=== PATIENT | female | born 1990 | race American Indian/Alaskan Native ===

== ENCOUNTER 2016-10-02 20:49 | Emergency (ER) | payer SELFPAY ==
[2016-10-02 21:55] LABS: Basophils % (Auto) 0.5 % (0.0-1.8); Eosinophils % (Auto) 4.8 % (0.0-4.3); Hemoglobin 13.2 gm/dl (10.1-14.3); Mean Corpuscular HGB Conc 33 % (30-34); Mean Corpuscular Hemoglobin 29 pg (28-32); Mean Corpuscular Volume 88 fl (79-97); Platelet Count 269 K/mm3 (140-440); Red Blood Count 4.54 M/mm3 (3.65-5.03); Red Cell Distribution Width 13.1 % (13.2-15.2); White Blood Count 4.4 K/mm3 (4.5-11.0)
[2016-10-02 22:01] LABS: Alanine Aminotransferase 54 units/L (7-56); Albumin 4.2 g/dL (3.9-5); Albumin/Globulin Ratio 1.3 %; Alkaline Phosphatase 98 units/L (35-129); Anion Gap 18 mmol/L; BUN/Creatinine Ratio 14.28; Bilirubin,Total < 0.20 mg/dL (0.1-1.2); Blood Urea Nitrogen 10 mg/dL (7-17); Calcium 8.9 mg/dL (8.4-10.2); Carbon Dioxide 23 mmol/L (22-30); Chloride 100.4 mmol/L (98-107); Glucose 80 mg/dL (65-100); Lipase 29 units/L (13-60); Potassium 3.5 mmol/L (3.6-5.0); Sodium 138 mmol/L (137-145); Total Protein 7.4 g/dL (6.3-8.2)
[2016-10-02 22:05] LABS: INR 0.94 (0.87-1.13)
[2016-10-02 22:06] LABS: Partial Thromboplastin Time 26.8 Sec. (24.2-36.6)
[2016-10-02 23:11] LABS: Bacteria,Urine 1+ /HPF (Negative); Bilirubin,Urine NEG (Negative); Blood,Urine NEG (Negative); Ketones,Urine NEG (Negative); Leukocyte Esterase,Urine NEG (Negative); Mucus,Urine FEW /HPF; Nitrite,Urine NEG (Negative); Protein,Urine <15 mg/dL mg/dL (Negative); Urobilinogen,Urine < 2.0 mg/dL (<2.0)
[2016-10-02] MEDS ORDERED: NACL 0.9% 1000 ML 1,000 ML IV ONE (23:53)
[2016-10-02] MEDS ORDERED: MORPHINE IV ONE (23:53)
[2016-10-02] MEDS ORDERED: ZOFRAN IV ONE (23:53)
[2016-10-03] MEDS ORDERED: BENADRYL IV ONE ×2 (00:55→01:49)
[2016-10-03 01:26] VITALS: BP 147/88
[2016-10-03] MEDS ORDERED: MORPHINE IV ONE (01:42)
--- NOTE | 2016-10-03 01:42 | Emergency Department Report ---
ED Female HPI - General Chief complaint: Vaginal Bleeding Stated complaint: VAGINAL BLEEDING/FEVER/ON BLOOD THINNER Time Seen by Provider: 10/02/16 23:42 Source: patient Mode of arrival: Ambulatory Limitations: No Limitations - History of Present Illness Initial comments: 26-year-old female with a past medical history of endometriosis and DVT diagnosed 4-5 months ago currently on Xarelto presents to the hospital with complaints of heavy vaginal bleeding that started at 4 AM. Positive subjective fever started this morning as well. Patient states she woke up in a sweat but was unable take her temperature.. Episodes of nausea and vomiting reported. Patient states she's used 20 pads in 16 hours and use an additional pad while waiting to be seen here. She has not had any menstrual cycle or vaginal bleeding since the delivery of her child one year ago. Patient has been on megestrol control to control her heavy and painful periods associated with endometriosis. Patient denies a history of uterine fibroids. She is presents concern of hemorrhage given that she is on Xarelto. Positive dysuria reported. HADOOP ADMINISTRATOR doctor: Not affiliated - Related Data Previous Rx's Medication Instructions Recorded Last Taken Type Ondansetron [Zofran Odt] 4 mg PO Q8HR PRN #20 tab.rapdis 10/03/16 Unknown Rx oxyCODONE /ACETAMINOPHEN [Percocet 1 tab PO Q6HR PRN #20 tablet 10/03/16 Unknown Rx 5/325] Allergies Allergy/AdvReac Type Severity Reaction Status Date / Time ibuprofen Allergy Hives Verified 10/02/16 21:19 ketorolac tromethamine Allergy Hives Verified 10/02/16 21:19 [From Toradol] Penicillins Allergy Hives Verified 10/02/16 21:19 ED Review of Systems ROS: Stated complaint: VAGINAL BLEEDING/FEVER/ON BLOOD THINNER Other details as noted in HPI Comment: All other systems reviewed and negative Other: Constitutional: Fever reported (subjective) Eyes: No eye pain visual changes ENT: No ear pain or throat pain Neck: Denies pain Respiratory: Denies cough wheezing shortness of breath Cardiovascular: Denies chest pain, palpitations, syncope GI: As per HPI : As per HPI Musculoskeletal: Denies back pain Skin: Denies rash, lesions, erythema Neurologic: Denies headache, numbness, weakness Psychiatric: Denies suicidal ideation, hallucinations ED Past Medical Hx - Past Medical History Previous Medical History?: Yes Additional medical history: Blood Clot Left leg. Endemetriosis - Surgical History Past Surgical History?: Yes Hx Appendectomy: Yes Additional Surgical History: Left Ankle x 4. C-Sec x 2 - Social History Smoking Status: Never Smoker Substance Use Type: None - Medications Home Medications: Home Medications Medication Instructions Recorded Confirmed Last Taken Type Ondansetron [Zofran Odt] 4 mg PO Q8HR PRN #20 tab.rapdis 10/03/16 Unknown Rx oxyCODONE /ACETAMINOPHEN [Percocet 1 tab PO Q6HR PRN #20 tablet 10/03/16 Unknown Rx 5/325] ED Physical Exam - General Limitations: No Limitations - Other Other exam information: General: No limitations, patient is alert in no acute distress Head exam: Atraumatic, normocephalic Eyes exam: Normal appearance, pupils equal reactive to light, extraocular movements intact ENT: Moist mucous membrane, normal oropharynx Neck exam: Normal inspection, full range of motion, no meningismus nontender Respiratory exam: Clear to auscultation bilateral, no wheezes, rales, crackles Cardiovascular: Normal rate and rhythm Abdomen: Soft, nondistended, suprapubic tenderness to palpation, with normal bowel sounds, no rebound, or guarding : No vaginal bleeding or blood in the vault. White vaginal discharge with positive uterine tenderness Extremity: Full range of motion normal inspection no deformity Back: Normal Inspection, full range of motion, no tenderness Neurologic: Alert, oriented x3, cranial nerves intact, no motor or sensory deficit Psychiatric: normal affect, normal mood Skin: Warm, dry, intact ED Course Vital Signs 10/02/16 10/03/16 21:15 01:24 Temperature 98.3 F 98 F Pulse Rate 96 H 88 Respiratory 18 18 Rate Blood Pressure 142/95 147/88 [Right] O2 Sat by Pulse 100 100 Oximetry - Reevaluation(s) Reevaluation #1: 10/03/16 01:44 Patient treated with morphine, Zofran, and normal saline subsequently developed itching which improved with Benadryl. Patient requesting additional morphine/ pain medication after vaginal exam ED Medical Decision Making - Lab Data Result diagrams: 10/02/16 21:26 10/02/16 21:26 Lab Results 10/02/16 10/02/16 10/02/16 Range/Units 21:26 21:26 21:26 WBC 4.4 L (4.5-11.0) K/mm3 RBC 4.54 (3.65-5.03) M/mm3 Hgb 13.2 (10.1-14.3) gm/dl Hct 40.0 (30.3-42.9) % MCV 88 (79-97) fl MCH 29 (28-32) pg MCHC 33 (30-34) % RDW 13.1 L (13.2-15.2) % Plt Count 269 (140-440) K/mm3 Lymph % (Auto) 35.4 H (13.4-35.0) % [place] % (Auto) 9.4 H (0.0-7.3) % Eos % (Auto) 4.8 H (0.0-4.3) % Baso % (Auto) 0.5 (0.0-1.8) % Lymph # 1.5 (1.2-5.4) K/mm3 [place] # 0.4 (0.0-0.8) K/mm3 Eos # 0.2 (0.0-0.4) K/mm3 Baso # 0.0 (0.0-0.1) K/mm3 Seg Neutrophils % 49.9 (40.0-70.0) % Seg Neutrophils # 2.2 (1.8-7.7) K/mm3 PT 12.5 (12.2-14.9) Sec. INR 0.94 (0.87-1.13) APTT 26.8 (24.2-36.6) Sec. Sodium 138 (137-145) mmol/L Potassium 3.5 L (3.6-5.0) mmol/L Chloride 100.4 (98-107) mmol/L Carbon Dioxide 23 (22-30) mmol/L Anion Gap 18 mmol/L BUN 10 (7-17) mg/dL Creatinine 0.7 (0.7-1.2) mg/dL Estimated GFR > 60 ml/min BUN/Creatinine Ratio 14.28 % Glucose 80 (65-100) mg/dL Calcium 8.9 (8.4-10.2) mg/dL Total Bilirubin < 0.20 (0.1-1.2) mg/dL AST 43 H (5-40) units/L ALT 54 (7-56) units/L Alkaline Phosphatase 98 (35-129) units/L Total Protein 7.4 (6.3-8.2) g/dL Albumin 4.2 (3.9-5) g/dL Albumin/Globulin Ratio 1.3 % Lipase 29 (13-60) units/L HCG, Qual (Negative) Urine Color (Yellow) Urine Turbidity (Clear) Urine pH (5.0-7.0) Ur Specific [place] (1.003-1.030) Urine Protein (Negative) mg/dL Urine Glucose (UA) (Negative) mg/dL Urine Ketones (Negative) mg/dL Urine Blood (Negative) Urine Nitrite (Negative) Urine Bilirubin (Negative) Urine Urobilinogen (<2.0) mg/dL Ur Leukocyte Esterase (Negative) Urine WBC (Auto) (0.0-6.0) /HPF Urine RBC (Auto) (0.0-6.0) /HPF U Epithel Cells (Auto) (0-13.0) /HPF Urine Bacteria (Auto) (Negative) /HPF Amorphous Crystals Urine Mucus /HPF Blood Type Antibody Screen DARRIAN Antibody Screen 10/02/16 10/02/16 10/02/16 Range/Units 21:26 21:26 22:21 WBC (4.5-11.0) K/mm3 RBC (3.65-5.03) M/mm3 Hgb (10.1-14.3) gm/dl Hct (30.3-42.9) % MCV (79-97) fl MCH (28-32) pg MCHC (30-34) % RDW (13.2-15.2) % Plt Count (140-440) K/mm3 Lymph % (Auto) (13.4-35.0) % [place] % (Auto) (0.0-7.3) % Eos % (Auto) (0.0-4.3) % Baso % (Auto) (0.0-1.8) % Lymph # (1.2-5.4) K/mm3 [place] # (0.0-0.8) K/mm3 Eos # (0.0-0.4) K/mm3 Baso # (0.0-0.1) K/mm3 Seg Neutrophils % (40.0-70.0) % Seg Neutrophils # (1.8-7.7) K/mm3 PT (12.2-14.9) Sec. INR (0.87-1.13) APTT (24.2-36.6) Sec. Sodium (137-145) mmol/L Potassium (3.6-5.0) mmol/L Chloride (98-107) mmol/L Carbon Dioxide (22-30) mmol/L Anion Gap mmol/L BUN (7-17) mg/dL Creatinine (0.7-1.2) mg/dL Estimated GFR ml/min BUN/Creatinine Ratio % Glucose (65-100) mg/dL Calcium (8.4-10.2) mg/dL Total Bilirubin (0.1-1.2) mg/dL AST (5-40) units/L ALT (7-56) units/L Alkaline Phosphatase (35-129) units/L Total Protein (6.3-8.2) g/dL Albumin (3.9-5) g/dL Albumin/Globulin Ratio % Lipase (13-60) units/L HCG, Qual Negative (Negative) Urine Color Yellow (Yellow) Urine Turbidity Cloudy (Clear) Urine pH 8.0 H (5.0-7.0) Ur Specific [place] 1.021 (1.003-1.030) Urine Protein <15 mg/dl (Negative) mg/dL Urine Glucose (UA) Neg (Negative) mg/dL Urine Ketones Neg (Negative) mg/dL Urine Blood Neg (Negative) Urine Nitrite Neg (Negative) Urine Bilirubin Neg (Negative) Urine Urobilinogen < 2.0 (<2.0) mg/dL Ur Leukocyte Esterase Neg (Negative) Urine WBC (Auto) 1.0 (0.0-6.0) /HPF Urine RBC (Auto) 1.0 (0.0-6.0) /HPF U Epithel Cells (Auto) 7.0 (0-13.0) /HPF Urine Bacteria (Auto) 1+ (Negative) /HPF Amorphous Crystals 1+ Urine Mucus Few /HPF Blood Type O POSITIVE Antibody Screen TNR DARRIAN Antibody Screen Negative - Radiology Data Radiology results: report reviewed (transvaginal/pelvic: UTERUS IS RETROVERTED APPEARS TO BE NORMAL. DOMINANT SIMPLE CYST IN THE LEFT OVARY MEASURING 24 MM. RIGHT OVARY NORMAL) - Medical Decision Making Other differential UTI Labs unremarkable with no leukocytosis or anemia. No signs of bleeding in the ED. Symptoms improved with fluids, Zofran, and morphine. This patient does not have any signs of acute hemorrhage and has unremarkable lab work with a history of endometriosis she will be sent home with pain medication and encouraged to follow-up with her HADOOP ADMINISTRATOR doctor or the HADOOP ADMINISTRATOR doctor provided - Differential Diagnosis uterine fibroids, endometriosis, anemia, coagulopathy, vaginitis, cerviciti Critical Care Time: No Critical care attestation.: If time is entered above; I have spent that time in minutes in the direct care of this critically ill patient, excluding procedure time. ED Disposition Clinical Impression: Pelvic pain, Vaginal bleeding, Anticoagulant long-term use Disposition: DISCHARGED TO HOME OR SELFCARE Is pt being admited?: No Does the pt Need Aspirin: No Condition: Stable Instructions: Endometriosis (ED), Dysmenorrhea (ED) Additional Instructions: Take the medication as prescribed. Follow-up with the HADOOP ADMINISTRATOR doctor provided with a HADOOP ADMINISTRATOR doctor of your choice. Return if symptoms worsen. Your gonorrhea and chlamydia tests are pending and take approximately 3-4 days result. You may obtain results in medical records with a photo ID. You may also obtain results through the follow-up doctor office via medical record request. Prescriptions: Ondansetron [Zofran Odt] 4 mg PO Q8HR PRN #20 tab.rapdis PRN Reason: Nausea And Vomiting oxyCODONE /ACETAMINOPHEN [Percocet 5/325] 1 tab PO Q6HR PRN #20 tablet PRN Reason: Pain Referrals: JOSE M HOUSTON MD [Staff Physician] - 3-5 Days your, panel edge painter [Other] - 3-5 Days (follow up as scheduled next week) Time of Disposition: 03:15
--- NOTE | 2016-10-06 07:33 | Ultrasound Report ---
FINAL REPORT PROCEDURE: Ultrasound pelvis transabdominal and transvaginal TECHNIQUE: Real-time transabdominal sonography in multiple planes of the pelvis was performed. The pelvic structures, especially the ovaries were not optimally visualized. Transvaginal sonography was then performed to better evaluate the structures and/or abnormalities described below with image documentation. CPT 54899 and 09653 HISTORY: vag bleed, pelvic pain COMPARISON: No prior studies are available for comparison. FINDINGS: UTERUS Size: 9.7 x 4.2 x 5.5 cm. Endometrial thickness: 2 mm. Orientation: Retroverted. Cervix: Normal. Fibroids/masses: None. RIGHT Ovary: 2.7 x 2 x 2.6 cm. Appearance: Normal. LEFT Ovary: 4.8 x 2 x 3.1 cm. Appearance: There is a dominant simple cyst measuring 24 millimeters. Pelvic fluid: None. Other: None. IMPRESSION: The uterus is retroverted. The echogenicity of the uterus is normal. The right ovary has a normal appearance. There is a dominant simple cyst on the left ovary this measures up to 24 millimeters.
--- NOTE | 2016-10-06 07:33 | Ultrasound Report ---
FINAL REPORT PROCEDURE: Ultrasound pelvis transabdominal and transvaginal TECHNIQUE: Real-time transabdominal sonography in multiple planes of the pelvis was performed. The pelvic structures, especially the ovaries were not optimally visualized. Transvaginal sonography was then performed to better evaluate the structures and/or abnormalities described below with image documentation. CPT 38762 and 78703 HISTORY: vag bleed, pelvic pain COMPARISON: No prior studies are available for comparison. FINDINGS: UTERUS Size: 9.7 x 4.2 x 5.5 cm. Endometrial thickness: 2 mm. Orientation: Retroverted. Cervix: Normal. Fibroids/masses: None. RIGHT Ovary: 2.7 x 2 x 2.6 cm. Appearance: Normal. LEFT Ovary: 4.8 x 2 x 3.1 cm. Appearance: There is a dominant simple cyst measuring 24 millimeters. Pelvic fluid: None. Other: None. IMPRESSION: The uterus is retroverted. The echogenicity of the uterus is normal. The right ovary has a normal appearance. There is a dominant simple cyst on the left ovary this measures up to 24 millimeters.
== END 2016-10-03 03:59 | disposition home or self-care (01) ==
LOC: ED 20:49
DX: N93.9 Abnormal uterine and vaginal bleeding, unspecified (principal); Z88.6 Allergy status to analgesic agent; Z88.0 Allergy status to penicillin; Z79.01 Long term (current) use of anticoagulants
CPT/HCPCS: 36415; 76830; 76856; 80053; 81001; 83690; 84703; 85025; 85610; 85730; 86850; 86900; 86901; 87210; 87591; 96361; 96374; 96375; 96376; 99285; J1200; J2270; J2405; J7030

== ENCOUNTER 2016-10-12 23:10 | Emergency (ER) | payer OTHER ==
[2016-10-13 01:48] LABS: Bilirubin,Urine NEG (Negative); Blood,Urine NEG (Negative); Ketones,Urine NEG (Negative); Leukocyte Esterase,Urine TR (Negative); Mucus,Urine FEW /HPF; Nitrite,Urine NEG (Negative); Protein,Urine <15 mg/dL mg/dL (Negative)
[2016-10-13 17:28] LABS: Basophils % (Auto) 0.7 % (0.0-1.8); Hematocrit 40.1 % (30.3-42.9); Hemoglobin 13.3 gm/dl (10.1-14.3); Mean Corpuscular HGB Conc 33 % (30-34); Mean Corpuscular Hemoglobin 29 pg (28-32); Mean Corpuscular Volume 86 fl (79-97); Platelet Count 317 K/mm3 (140-440); Red Blood Count 4.66 M/mm3 (3.65-5.03); Red Cell Distribution Width 12.4 % (13.2-15.2); White Blood Count 5.1 K/mm3 (4.5-11.0)
[2016-10-13] MEDS ORDERED: MORPHINE IV ONE ×2 (17:32→19:30)
[2016-10-13] MEDS ORDERED: BENADRYL IV ONE ×2 (17:32→19:30)
--- NOTE | 2016-10-13 17:36 | Emergency Department Report ---
HPI - General Chief Complaint: Urogenital-Female Time Seen by Provider: 10/13/16 17:04 - HPI HPI: This is a 26-year-old AA female who presents to the emergency department with a complaint of painful urination with some blood clots seen in urine. She is also complaining of right sided flank pain. This all began yesterday and the patient came in last night to be seen but had to wait too long and went home and tried to get some sleep. However the patient woke up with even more pain than usual so she came back in to be seen. She did not take anything for her symptoms prior to presentation. The patient was here a few weeks ago for similar symptoms but had vaginal bleeding at that time. She has a history of endometriosis and was found to have a ovarian cyst. She was referred to her OB/ PRICE CHANGER. She has not yet established care but will be going to [facility]. She had an appointment but had to cancel it secondary to a family emergency and has not yet made an appointment. Recent travel or sick contacts at home. She denies any fever, nausea, vomiting, discharge, diaphoresis. ED Past Medical Hx - Past Medical History Previous Medical History?: Yes Additional medical history: Blood Clot Left leg. Endemetriosis - Surgical History Past Surgical History?: Yes Hx Appendectomy: Yes Additional Surgical History: Left Ankle x 4. C-Sec x 2 - Social History Smoking Status: Never Smoker Substance Use Type: None - Medications Home Medications: Home Medications Medication Instructions Recorded Confirmed Last Taken Type Ondansetron [Zofran Odt] 4 mg PO Q8HR PRN #20 tab.rapdis 10/03/16 Unknown Rx oxyCODONE /ACETAMINOPHEN [Percocet 1 tab PO Q6HR PRN #12 tablet 10/13/16 Unknown Rx 5/325 mg] ED Review of Systems ROS: Stated complaint: VAGINAL BLEEDING Other details as noted in HPI Comment: All other systems reviewed and negative Constitutional: denies: chills, fever Eyes: denies: eye pain, eye discharge, vision change ENT: denies: ear pain, throat pain Respiratory: denies: cough, shortness of breath, wheezing Cardiovascular: denies: chest pain, palpitations Gastrointestinal: abdominal pain. denies: vomiting Genitourinary: dysuria, hematuria Musculoskeletal: back pain. denies: arthralgia Skin: denies: rash, lesions Neurological: denies: headache, weakness, paresthesias Physical Exam - Physical Exam Vital Signs: Vital Signs 10/12/16 10/13/16 23:21 16:37 Temperature 98.5 F 98.5 F Pulse Rate 89 96 H Respiratory 18 16 Rate Blood Pressure 124/86 134/93 O2 Sat by Pulse 100 100 Oximetry Physical Exam: GENERAL: The patient is well-developed well-nourished. HEENT: Normocephalic. Atraumatic. Extraocular motions are intact. Patient has moist mucous membranes. Pupils equal reactive to light bilaterally. NECK: Supple. Trachea is midline. CHEST/LUNGS: Clear to auscultation. There is no respiratory distress noted. HEART/CARDIOVASCULAR: Regular. There is no tachycardia. There is no gallop rub or murmur. ABDOMEN: Abdomen is soft. No reproducible tenderness to palpation of the abdomen or flank. No guarding rebound tenderness. Patient has normal bowel sounds. There is no abdominal distention. SKIN: Skin is warm and dry. NEURO: The patient is awake, alert, and oriented. The patient is cooperative. The patient has no focal neurologic deficits. The patient has normal speech. MUSCULOSKELETAL: There is no tenderness or deformity. There is no limitation range of motion. There is no evidence of acute injury. BACK: No midline thoracic or lumbar tenderness to palpation or deformity. Patient has some right-sided CVA tenderness to palpation. ED Course Vital Signs 10/12/16 10/13/16 23:21 16:37 Temperature 98.5 F 98.5 F Pulse Rate 89 96 H Respiratory 18 16 Rate Blood Pressure 124/86 134/93 O2 Sat by Pulse 100 100 Oximetry ED Medical Decision Making - Lab Data Result diagrams: 10/13/16 17:11 10/13/16 17:11 - Radiology Data Radiology results: report reviewed EXAM: CT ABDOMEN PELVIS WO CON HISTORY: Abd and flank pain TECHNIQUE: Unenhanced stone protocol CT of the abdomen and pelvis at 2.5 millimeter axial increments. Coronal and sagittal reconstruction was also performed. PRIORS: Pelvic ultrasound 10/03/2016 FINDINGS: There is no evidence for renal calculi or hydronephrosis. No evidence for ureteral or bladder calculus is seen. No evidence for renal or bladder mass is noted. Otherwise, within the limits of a noncontrast exam, the liver, spleen, pancreas, gallbladder, and adrenal glands are unremarkable. No evidence for retroperitoneal or pelvic lymphadenopathy is seen. The bowel loops have normal caliber. No fluid collection, inflammatory change, or free air is seen within the abdomen or pelvis. The appendix is not visualized. Surgical clips are noted along the medial cecum suggesting prior appendectomy. Within the pelvis, the uterus is normal. The left ovary is cranial in position lying anterior to the iliopsoas muscle. There is a 2.1 x 2.8 cm low-density rounded cyst this region (axial image 114), likely ovarian. The this can be further evaluated with ultrasound. Images through the upper abdomen include the lung bases which are expanded and clear. Bony structures show a focal lucency in the right sacral ala with a thick sclerotic wall. This measures 2.6 x 1.9 cm (axial image 110). This probably represents a bone cyst. IMPRESSION: 1. No evidence for renal calculi or renal obstruction. 2. Cystic focus in the lower left quadrant of the abdomen. I suspect this represents an ovarian cyst associated with a left ovary which is cranial in position. Findings can be confirmed by ultrasound. 3. Lucent focus in the right sacral ala with a thick sclerotic surrounding wall. This probably represents a bone cyst. - Medical Decision Making Is a 26-year-old female with a history of ovarian cysts and endometriosis who presents with some dysuria, hematuria and some flank pain. A urinalysis was done through triage that did not show any signs of urinary tract infection or any significant hematuria. Once I saw the patient more labs were ordered. Patient is not . There is no leukocytosis, electrolyte abnormalities, renal insufficiency and she has normal belly labs including bilirubin, lipase and LFTs. Physical exam she has some right CVA tenderness to palpation and some complaint of right lower abdominal and flank discomfort. This reason a CT of the abdomen and pelvis without contrast was done that came back showing signs of a ovarian cyst and a possible sacral alae own cyst. The left sided ovarian cyst is consistent with her previous ultrasound results. Patient was given some IV fluid, pain medication and upon reevaluation she is improved. She will be discharged home with some pain medication and referrals for primary care, urology and MOTEL OPERATOR. She has been encouraged to return to the ER with any worsening of her symptoms or any acute distress. - Differential Diagnosis UTI, , nephrolithiasis, hydronephrosis, colitis Critical Care Time: No Critical care attestation.: If time is entered above; I have spent that time in minutes in the direct care of this critically ill patient, excluding procedure time. ED Disposition Clinical Impression: Flank pain, Dysuria, Hematuria, Pelvic pain, Anticoagulant long-term use Disposition: TO HOME OR SELFCARE Is pt being admited?: No Condition: Stable Instructions: Acute Hematuria (ED), Dysuria (ED), Ovarian Cyst (ED), Chronic Pelvic Pain in Women (ED) Additional Instructions: Is follow-up with a primary care doctor in the next few days. Please follow-up with your MOTEL OPERATOR regarding your ovarian cyst and pelvic pains. I've given a referral for a local urologist, Dr. Banks, to follow up regarding your painful urination and blood in the urine. Prescriptions: oxyCODONE /ACETAMINOPHEN [Percocet 5/325 mg] 1 tab PO Q6HR PRN #12 tablet PRN Reason: Pain Referrals: PRIMARY CAREMD [Primary Care Provider] - 3-5 Days JOHN BANKS MD [Staff Physician] - 3-5 Days [facility] [Provider Group] - 3-5 Days [facility] [Provider Group] - 3-5 Days Time of Disposition: 19:47
[2016-10-13 17:44] LABS: Anion Gap 18 mmol/L; Blood Urea Nitrogen 9 mg/dL (7-17); Carbon Dioxide 23 mmol/L (22-30); Chloride 102.9 mmol/L (98-107); Glucose 88 mg/dL (65-100); Sodium 140 mmol/L (137-145)
[2016-10-13] MEDS ORDERED: NACL 0.9% 1000 ML 1,000 ML IV ONE (17:57)
[2016-10-13 18:20] LABS: Alanine Aminotransferase 41 units/L (7-56); Albumin 4.3 g/dL (3.9-5); Albumin/Globulin Ratio 1.6 %; Alkaline Phosphatase 104 units/L (35-129); Bilirubin,Direct < 0.2 mg/dL (0-0.2); Bilirubin,Indirect 0.1 mg/dL
--- NOTE | 2016-10-13 19:14 | Cat Scan Report ---
FINAL REPORT EXAM: CT ABDOMEN PELVIS WO CON HISTORY: Abd and flank pain TECHNIQUE: Unenhanced stone protocol CT of the abdomen and pelvis at 2.5 millimeter axial increments. Coronal and sagittal reconstruction was also performed. PRIORS: Pelvic ultrasound 10/03/2016 FINDINGS: There is no evidence for renal calculi or hydronephrosis. No evidence for ureteral or bladder calculus is seen. No evidence for renal or bladder mass is noted. Otherwise, within the limits of a noncontrast exam, the liver, spleen, pancreas, gallbladder, and adrenal glands are unremarkable. No evidence for retroperitoneal or pelvic lymphadenopathy is seen. The bowel loops have normal caliber. No fluid collection, inflammatory change, or free air is seen within the abdomen or pelvis. The appendix is not visualized. Surgical clips are noted along the medial cecum suggesting prior appendectomy. Within the pelvis, the uterus is normal. The left ovary is cranial in position lying anterior to the iliopsoas muscle. There is a 2.1 x 2.8 cm low-density rounded cyst this region (axial image 114), likely ovarian. The this can be further evaluated with ultrasound. Images through the upper abdomen include the lung bases which are expanded and clear. Bony structures show a focal lucency in the right sacral ala with a thick sclerotic wall. This measures 2.6 x 1.9 cm (axial image 110). This probably represents a bone cyst. IMPRESSION: 1. No evidence for renal calculi or renal obstruction. 2. Cystic focus in the lower left quadrant of the abdomen. I suspect this represents an ovarian cyst associated with a left ovary which is cranial in position. Findings can be confirmed by ultrasound. 3. Lucent focus in the right sacral ala with a thick sclerotic surrounding wall. This probably represents a bone cyst.
[2016-10-13 19:33] VITALS: BP 113/82
== END 2016-10-13 23:30 | disposition home or self-care (01) ==
LOC: ED 23:10
DX: R30.0 Dysuria (principal); R31.9 Hematuria, unspecified; R10.9 Unspecified abdominal pain; R10.2 Pelvic and perineal pain; Z79.01 Long term (current) use of anticoagulants; Z90.49 Acquired absence of other specified parts of digestive tract; Z88.0 Allergy status to penicillin; Z88.6 Allergy status to analgesic agent; Z88.8 Allergy status to other drugs, medicaments and biological substances
CPT/HCPCS: 36415; 74176; 80048; 80074; 81001; 81025; 85025; 87086; 96361; 96374; 96375; 96376; 99284; J1200; J2270; J7030

== ENCOUNTER 2017-04-17 11:19 | Emergency (ER) | payer SELFPAY ==
[2017-04-17 11:40] VITALS: BP 131/88
[2017-04-17] MEDS ORDERED: TYLENOL PO ONE (11:41)
[2017-04-17] MEDS ORDERED: ZOFRAN ODT PO ONE (11:41)
[2017-04-17 12:25] LABS: Basophils % (Auto) 0.7 % (0.0-1.8); Eosinophils % (Auto) 2.1 % (0.0-4.3); Hematocrit 43.2 % (30.3-42.9); Hemoglobin 14.4 gm/dl (10.1-14.3); Mean Corpuscular HGB Conc 33 % (30-34); Mean Corpuscular Hemoglobin 29 pg (28-32); Mean Corpuscular Volume 88 fl (79-97); Platelet Count 281 K/mm3 (140-440); Red Blood Count 4.91 M/mm3 (3.65-5.03); Red Cell Distribution Width 13.4 % (13.2-15.2); White Blood Count 5.4 K/mm3 (4.5-11.0)
[2017-04-17 12:38] LABS: Anion Gap 18 mmol/L; BUN/Creatinine Ratio 20; Blood Urea Nitrogen 12 mg/dL (7-17); Calcium 9.1 mg/dL (8.4-10.2); Carbon Dioxide 22 mmol/L (22-30); Chloride 101.8 mmol/L (98-107); Glucose 95 mg/dL (65-100); Potassium 3.6 mmol/L (3.6-5.0); Sodium 138 mmol/L (137-145)
[2017-04-17 13:18] LABS: Bilirubin,Urine NEG (Negative); Blood,Urine NEG (Negative); Ketones,Urine NEG (Negative); Leukocyte Esterase,Urine NEG (Negative); Mucus,Urine 3+ /HPF; Nitrite,Urine NEG (Negative); Protein,Urine <15 mg/dL mg/dL (Negative); Urobilinogen,Urine < 2.0 mg/dL (<2.0)
--- NOTE | 2017-04-17 14:48 | Ultrasound Report ---
FINAL REPORT EXAM: US TRANSVAGINAL HISTORY: pt has a right ovarian cyst/RO rupture r/t pain TECHNIQUE: Pelvic ultrasound. Transvaginal scanning read in conjunction with transabdominal study performed concurrently. Duplex Doppler of the ovaries included. PRIORS: 10/02/2016 FINDINGS: There is no uterine mass is seen. The uterus measures 10.9 x 2.8 x 5.7 cm. Endometrial thickness is 5. The right ovary measures 3.2 x 3.5 x 2.7 cm. The left ovary measures 4.1 x 3.4 x 2.3 cm. There is a 2.3 cm left ovarian dominant follicle.. There is blood flow within both ovarieswhich is demonstrated on color flow and spectral waveform imaging. There is no free fluid in the cul-de-sac. IMPRESSION: 2.3 cm left ovarian cyst is likely a dominant follicle. There is no significant abnormality identified.
--- NOTE | 2017-04-17 14:49 | Ultrasound Report ---
FINAL REPORT EXAM: US PELVIC COMPLETE HISTORY: pt has a right ovarian cyst/RO rupture r/t pain TECHNIQUE: Pelvic ultrasound. Transabdominal scanning read in conjunction with transvaginal study performed concurrently. PRIORS: 10/02/2016 FINDINGS: There is no uterine mass is seen. The uterus measures 10.9 x 2.8 x 5.7 cm. Endometrial thickness is 5. The right ovary measures 3.2 x 3.5 x 2.7 cm. The left ovary measures 4.1 x 3.4 x 2.3 cm. There is a 2.3 cm left ovarian dominant follicle.. There is blood flow within both ovaries by transabdominal color flow. There is no free fluid in the cul-de-sac. IMPRESSION: 2.3 cm left ovarian cyst is likely a dominant follicle. There is no significant abnormality identified.
--- NOTE | 2017-04-17 17:14 | Emergency Department Report ---
ED Female HPI - General Chief complaint: Vaginal Bleeding Stated complaint: VAG BLEEDING Time Seen by Provider: 04/17/17 16:57 Source: patient Mode of arrival: Ambulatory Limitations: No Limitations - History of Present Illness Initial comments: Patient here reports that she has a 12 cm right ovarian cyst. She said her OB who is Dr. Sin Sapp has been monitored her. She said last week in his office this was still there and it has not shrunk. She said last night she had sudden onset of pelvic pain, nausea and vomiting and heavy vaginal bleeding. She says she's been bleeding from 2 AM to 12 PM. Her doctor told her to come to the emergency room. She has an appointment with her ARABIC TRANSLATOR on 04/22/2017 but she couldn't wait seeing him and he told her to come to the emergency room. She reports that pain is worse than it 7 out of 10 located in her pelvic. Area. She says she has a history of endometriosis and she's been monitored by her ARABIC TRANSLATOR. Patient had ultrasound this hospital on 10/02/2016 where she was here for similar complaints for right ovarian cyst rule out rupture due to intense pain. Denies any vaginal discharge, urinary burning, urinary frequency or urgency. Denies any back pain. She says her menses is irregular and it's been monitored by her ARABIC TRANSLATOR doctor. MD Complaint: vaginal bleeding, pelvic pain -: This morning Location: other (pelvic area) Radiation: non-radiating Severity: severe Severity scale (0 -10): 7 Quality: cramping Improves with: none Worsens with: none Are you Now?: No Associated Symptoms: vaginal bleeding, abdominal pain, nausea/vomiting. denies : vaginal discharge, fever/chills, headaches, loss of appetite, dysuria, hematuria, rash, seizure, shortness of breath, syncope, weakness - Related Data Sexually active: No Previous Rx's Medication Instructions Recorded Last Taken Type Ondansetron [Zofran Odt] 4 mg PO Q8HR PRN #20 tab.rapdis 10/03/16 Unknown Rx oxyCODONE /ACETAMINOPHEN [Percocet 1 tab PO Q6HR PRN #12 tablet 10/13/16 Unknown Rx 5/325 mg] traMADol [Ultram] 50 mg PO Q6HR PRN 3 Days #12 tablet 04/17/17 Unknown Rx Allergies Allergy/AdvReac Type Severity Reaction Status Date / Time ibuprofen Allergy Hives Verified 10/02/16 21:19 ketorolac tromethamine Allergy Hives Verified 10/02/16 21:19 [From Toradol] Penicillins Allergy Hives Verified 10/02/16 21:19 ED Review of Systems ROS: Stated complaint: VAG BLEEDING Other details as noted in HPI Comment: All other systems reviewed and negative Constitutional: no symptoms reported Respiratory: no symptoms reported Cardiovascular: denies: chest pain, palpitations, dyspnea on exertion, orthopnea , edema, syncope, paroxysmal nocturnal dyspnea Gastrointestinal: abdominal pain, nausea, vomiting (she said she had one episode of vomiting at 2 AM). denies: diarrhea, constipation, hematemesis, melena, hematochezia Genitourinary: abnormal menses. denies: urgency, dysuria, frequency, hematuria , discharge, dyspareunia Skin: denies: rash Neurological: denies: headache, weakness, numbness, paresthesias, confusion, abnormal gait, vertigo ED Past Medical Hx - Past Medical History Previous Medical History?: Yes Additional medical history: Blood Clot Left leg. Endemetriosis - Surgical History Past Surgical History?: Yes Hx Appendectomy: Yes Additional Surgical History: Left Ankle x 4. C-Sec x 2 - Family History Family history: no significant - Social History Smoking Status: Never Smoker Substance Use Type: None - Medications Home Medications: Home Medications Medication Instructions Recorded Confirmed Last Taken Type Ondansetron [Zofran Odt] 4 mg PO Q8HR PRN #20 tab.rapdis 10/03/16 Unknown Rx oxyCODONE /ACETAMINOPHEN [Percocet 1 tab PO Q6HR PRN #12 tablet 10/13/16 Unknown Rx 5/325 mg] traMADol [Ultram] 50 mg PO Q6HR PRN 3 Days #12 tablet 04/17/17 Unknown Rx ED Physical Exam - General Limitations: No Limitations General appearance: alert, in no apparent distress - Head Head exam: Present: atraumatic, normocephalic, normal inspection - Eye Eye exam: Present: normal appearance, PERRL, EOMI. Absent: nystagmus, periorbital swelling, periorbital tenderness Pupils: Present: normal accommodation - ENT ENT exam: Present: normal exam, normal orophraynx, mucous membranes moist - Neck Neck exam: Present: normal inspection, full ROM. Absent: tenderness, meningismus, lymphadenopathy, thyromegaly - Respiratory Respiratory exam: Present: normal lung sounds bilaterally. Absent: respiratory distress, chest wall tenderness, accessory muscle use - Cardiovascular Cardiovascular Exam: Present: normal rhythm, tachycardia, normal heart sounds. Absent: systolic murmur, diastolic murmur - GI/Abdominal GI/Abdominal exam: Present: soft, normal bowel sounds. Absent: distended, tenderness, guarding, rebound, rigid, organomegaly, mass, bruit, pulsatile mass , hernia - External exam: Present: normal external exam. Absent: erythema, swelling, lesions, lacerations, ecchymosis, bleeding Speculum exam: Present: normal speculum exam. Absent: erythema, vaginal discharge, cervical discharge, vaginal bleeding, foreign body, tissue, laceration Bi-manual exam: Present: normal bi-manual exam. Absent: cervical motion tendernes, adnexal tenderness, adnexal mass, uterine enlargement, uterine tenderness - Extremities Exam Extremities exam: Present: normal inspection, full ROM, normal capillary refill , calf tenderness, other (clubbing, cyanosis or edema to extremities. +2 pulses all extremities. No neurovascular compromise. No joint deformities, crepitus, erythema, ecchymotic area. +5/5 strength in all extremities. No contusions. Negative Homans signs bilaterally.). Absent: tenderness, pedal edema, joint swelling - Back Exam Back exam: Present: normal inspection, full ROM, CVA tenderness (L), other ( ambulates without any difficulties). Absent: tenderness, CVA tenderness (R), muscle spasm, paraspinal tenderness, vertebral tenderness, rash noted - Neurological Exam Neurological exam: Present: alert, oriented X3, normal gait, reflexes normal. Absent: motor sensory deficit - Psychiatric Psychiatric exam: Present: normal affect, normal mood - Skin Skin exam: Present: warm, dry, intact, normal color. Absent: rash ED Course Vital Signs 04/17/17 04/17/17 04/17/17 11:35 11:47 17:30 Temperature 98.7 F Pulse Rate 103 H 82 Respiratory 18 18 Rate Blood Pressure 131/88 O2 Sat by Pulse 100 Oximetry - Reevaluation(s) Reevaluation #1: 04/17/17 17:34 Stable throughout ED course ED Medical Decision Making - Lab Data Result diagrams: 04/17/17 11:58 04/17/17 11:58 Lab Results 04/17/17 04/17/17 04/17/17 Range/Units 11:58 11:58 11:58 WBC 5.4 (4.5-11.0) K/mm3 RBC 4.91 (3.65-5.03) M/mm3 Hgb 14.4 H (10.1-14.3) gm/dl Hct 43.2 H (30.3-42.9) % MCV 88 (79-97) fl MCH 29 (28-32) pg MCHC 33 (30-34) % RDW 13.4 (13.2-15.2) % Plt Count 281 (140-440) K/mm3 Lymph % (Auto) 31.5 (13.4-35.0) % [place] % (Auto) 7.6 H (0.0-7.3) % Eos % (Auto) 2.1 (0.0-4.3) % Baso % (Auto) 0.7 (0.0-1.8) % Lymph # 1.7 (1.2-5.4) K/mm3 [place] # 0.4 (0.0-0.8) K/mm3 Eos # 0.1 (0.0-0.4) K/mm3 Baso # 0.0 (0.0-0.1) K/mm3 Seg Neutrophils % 58.1 (40.0-70.0) % Seg Neutrophils # 3.1 (1.8-7.7) K/mm3 Sodium 138 (137-145) mmol/L Potassium 3.6 (3.6-5.0) mmol/L Chloride 101.8 (98-107) mmol/L Carbon Dioxide 22 (22-30) mmol/L Anion Gap 18 mmol/L BUN 12 (7-17) mg/dL Creatinine 0.6 L (0.7-1.2) mg/dL Estimated GFR > 60 ml/min BUN/Creatinine Ratio 20 % Glucose 95 (65-100) mg/dL Calcium 9.1 (8.4-10.2) mg/dL HCG, Quant < 2 (0-4) mIU/mL Urine Color (Yellow) Urine Turbidity (Clear) Urine pH (5.0-7.0) Ur Specific [place] (1.003-1.030) Urine Protein (Negative) mg/dL Urine Glucose (UA) (Negative) mg/dL Urine Ketones (Negative) mg/dL Urine Blood (Negative) Urine Nitrite (Negative) Urine Bilirubin (Negative) Urine Urobilinogen (<2.0) mg/dL Ur Leukocyte Esterase (Negative) Urine WBC (Auto) (0.0-6.0) /HPF Urine RBC (Auto) (0.0-6.0) /HPF U Epithel Cells (Auto) (0-13.0) /HPF Urine Mucus /HPF Blood Type Antibody Screen 04/17/17 04/17/17 Range/Units 11:58 12:36 WBC (4.5-11.0) K/mm3 RBC (3.65-5.03) M/mm3 Hgb (10.1-14.3) gm/dl Hct (30.3-42.9) % MCV (79-97) fl MCH (28-32) pg MCHC (30-34) % RDW (13.2-15.2) % Plt Count (140-440) K/mm3 Lymph % (Auto) (13.4-35.0) % [place] % (Auto) (0.0-7.3) % Eos % (Auto) (0.0-4.3) % Baso % (Auto) (0.0-1.8) % Lymph # (1.2-5.4) K/mm3 [place] # (0.0-0.8) K/mm3 Eos # (0.0-0.4) K/mm3 Baso # (0.0-0.1) K/mm3 Seg Neutrophils % (40.0-70.0) % Seg Neutrophils # (1.8-7.7) K/mm3 Sodium (137-145) mmol/L Potassium (3.6-5.0) mmol/L Chloride (98-107) mmol/L Carbon Dioxide (22-30) mmol/L Anion Gap mmol/L BUN (7-17) mg/dL Creatinine (0.7-1.2) mg/dL Estimated GFR ml/min BUN/Creatinine Ratio % Glucose (65-100) mg/dL Calcium (8.4-10.2) mg/dL HCG, Quant (0-4) mIU/mL Urine Color Yellow (Yellow) Urine Turbidity Clear (Clear) Urine pH 6.0 (5.0-7.0) Ur Specific [place] 1.029 (1.003-1.030) Urine Protein <15 mg/dl (Negative) mg/dL Urine Glucose (UA) Neg (Negative) mg/dL Urine Ketones Neg (Negative) mg/dL Urine Blood Neg (Negative) Urine Nitrite Neg (Negative) Urine Bilirubin Neg (Negative) Urine Urobilinogen < 2.0 (<2.0) mg/dL Ur Leukocyte Esterase Neg (Negative) Urine WBC (Auto) 1.0 (0.0-6.0) /HPF Urine RBC (Auto) 3.0 (0.0-6.0) /HPF U Epithel Cells (Auto) 6.0 (0-13.0) /HPF Urine Mucus 3+ /HPF Blood Type O POSITIVE Antibody Screen Negative - Radiology Data Radiology results: report reviewed Vaginal and abdominal ultrasound of pelvic and abdomen reveals patient with 2.3 cm left ovarian cyst which is likely a dominant follicle. There is no significant abnormality noted. There is no uterine mass. The uterus measures 10.9 x 2.8 x 5.7 cm. Endometrial thickness is 5. The right ovary measures 3.2 3.52.7 cm and no mention of ovarian mass or cyst. Transvaginal ultrasound reports that there is blood flow within both ovaries which is demonstrated on color flow and spectral waveform imaging there is no free fluid in the cul-de-sac. - Medical Decision Making D course: In an emergency room reports that she was sent by her ARABIC TRANSLATOR doctor who is Dr. Sin Sapp to be evaluated for vaginal bleeding since 2 AM this morning and pelvic pain which has been ongoing on and off and her ARABIC TRANSLATOR has been following her for endometriosis. Patient reports that she has 12 cm right ovarian cyst and she's been monitored by her ARABIC TRANSLATOR and that she ARABIC TRANSLATOR last week in the office and cyst has not changed in size. She says she woke up at 4 AM with vaginal bleeding and pelvic pain and she called her ARABIC TRANSLATOR and he told her to come to the emergency room for evaluation. CBC reveals a normal hematocrit and normal hemoglobin. Blood chemistry without any abnormality, quantitative hCG is less than 2 which suggests patient is not , urinalysis without any infection. No mention of blood in urinalysis. Pelvic exam or mole without any CMT, vaginal discharge, uterine enlargement, vaginal bleeding. Patient was not concerned about any STD because she says she's had STD testing done recently. Patient had ultrasound done in 09/25/2016 and she had transvaginal and abdominal and pelvic ultrasound done today. This shows that she has no abnormality to her right ovary and her left ovary has a 2.3 cm cyst that is a dominant follicle with no significant abnormality. Also mentioned that there is no uterine mass. There is also mention of good blood flow within the ovaries which is demonstrated on the ultrasound waveform. There are no free fluid in the cul-de-sac. I discussed patient's my examination , lab results and ultrasound results. I told her that she does not have any cyst on her right ovary and her right ovary is normal and she has a 2.3 cm cyst on her left ovary which is follicular in nature and there are no bleeding in in her vaginal vault or from her cervix. I also discussed her that her hemoglobin and hematocrit is within normal limits and is not showing any signs of acute blood loss. Patient abdomen nontender to palpate. I discussed patient that she needs to keep her appointment with Dr. Sin Sapp who is her ARABIC TRANSLATOR on at 4 PM and I will put on Ultram and to bring ultrasound CD to her visit with her ARABIC TRANSLATOR with her. She was noticed in a discharge instruction and treatment plan along with follow-up planned. Patient discharged home from emergency room with prescription for Ultram. Critical care attestation.: If time is entered above; I have spent that time in minutes in the direct care of this critically ill patient, excluding procedure time. ED Disposition Clinical Impression: Pelvic pain, Left ovarian cyst Disposition: DC-01 TO HOME OR SELFCARE Is pt being admited?: No Does the pt Need Aspirin: No Condition: Stable Instructions: Abdominal Pain (ED), Ovarian Cyst (ED) Additional Instructions: Follow-up with ARABIC TRANSLATOR please follow up with the ARABIC TRANSLATOR on 04/22/2017 as scheduled. Take ultrasound report with you. Blood work reflects that you are not and she does not have any acute blood loss. Ultrasound revealed a you do not have a right ovarian cyst and that your right ovary is normal in size and has good blood flow. you have small cyst on your left ovary and left ovary with good blood flow. Take Ultram instructed but please do not drive or operate heavy machinery as this medication can cause drowsiness Increase clear fluid intake Prescriptions: traMADol [Ultram] 50 mg PO Q6HR PRN 3 Days #12 tablet PRN Reason: Pain Referrals: PRIMARY CARE, [Primary Care Provider] - 04/22/17 Forms: Work/School Release Form(ED)
== END 2017-04-17 17:55 | disposition home or self-care (01) ==
LOC: ED 11:19
DX: N83.202 Unspecified ovarian cyst, left side (principal); Z88.6 Allergy status to analgesic agent; Z88.0 Allergy status to penicillin
CPT/HCPCS: 36415; 76830; 76856; 80048; 81001; 84702; 85025; 86850; 86900; 86901; 99284; Q0162

== ENCOUNTER 2017-09-04 10:46 | Emergency (ER) | payer OTHER ==
[2017-09-04 10:55] VITALS: BP 135/96
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
== END 2017-09-04 11:39 | disposition home or self-care (01) ==
LOC: ED 10:46
DX: Z76.0 Encounter for issue of repeat prescription (principal); Z88.6 Allergy status to analgesic agent; Z88.0 Allergy status to penicillin; Z88.1 Allergy status to other antibiotic agents
CPT/HCPCS: 99282